=== PATIENT | male | born 1950 | race Caucasian/White ===

== ENCOUNTER → 2018-03-20 11:01 | Day surgery (SDC) | payer MEDICARE, OTHER ==
[~2018-03-20 11:01] MED LIST: Flumazenil* 0.1 MG/ML 5 ML MDV ONE; Heparin 2 UNITS/ML IVPREMIX* 1,000 ML IV ONE; Heparin 2 UNITS/ML IVPREMIX* 2,000 ML IV ONE; Heparin(*) 1000 UNIT/ML 10 ML VIAL CATH LAB IV ONE; Iodixanol* (CONTRAST) 320 MG/ML 100 ML SDV ONE; Lidocaine 1%* 5 ML VIAL ONE; Midazolam* 1 MG/ML 10 ML VIAL (10 MG) ONE; Naloxone* 0.4 MG/ML 1 ML VIAL ONE; fentaNYL* 50 MCG/ML 5 ML VIAL (250 MCG VIAL) ONE; nitroGLYCERIN DRIP* 0 MCG/0 ML BTL ONE
[2018-03-20 16:36] VITALS: BP 167/77
--- NOTE | 2018-03-20 17:39 | RAD ---
CPT II Codes: G9500 Procedure(s) performed: 1. Diagnostic arteriography of the pelvis and bilateral lower extremities. 2. Balloon angioplasty of the right common iliac artery, left internal iliac artery and left superficial femoral artery. 3. Percutaneous closure with a minx closure device to the right common femoral arteriotomy. Date of service: March 20, 2018 Indication for procedure: Right worse than left hip and buttock claudication as well as bilateral calf claudication Comparison: CTA with runoff dated January 23, 2018 Contrast: 175 mL of Visipaque 320 Fluoroscopy Time: 12.7 minutes Vessels Accessed: Percutaneous access was obtained with ultrasound guidance in the right common femoral artery in the retrograde direction towards the heart. Catheter arteriography, with the catheter tip located within the lumen of the following arteries, was performed at the right external iliac artery, aorta, left common iliac artery, left common femoral artery and left superficial femoral artery. Anesthesia: Conscious sedation with IV Fentanyl and Versed as well as local 1% lidocaine injected locally at the arteriotomy site. Conscious sedation time: Timeout: 1224 hours Case end: 1402 hours Total conscious sedation time: 1 hour and 38 minutes Additional medications: * IV heparin 5000 Units to achieve a goal ACT of 250-300. * The patient received 1 mg of p.o. Ativan prior to the onset of the procedure. PROCEDURE NOTE AND INTRAPROCEDURAL IMAGING FINDINGS: Immediately prior to the procedure the patient signed consent after thoroughly discussing all risks, benefits and alternative therapies. The patient was positioned on the fluoroscopy table in the supine position and the bilateral groins were shaved, prepped and the patient was draped in standard sterile fashion. Using fluoroscopic imaging the location of the right common femoral head was marked externally with a skin marker on the patient's groin. Utilizing sonographic guidance and palpation, the right common femoral artery was cannulated overlying the femoral head with an 18-gauge needle. An ultrasound image was saved. A 0.035" wire was slowly and smoothly advanced into the common femoral artery under fluoroscopic imaging. No buckling of the wire was visualized to indicate dissection. With the wire securing percutaneous arterial access, the needle was removed and a 5-[place] SideArm access sheath was advanced under fluoroscopic control into the right external iliac artery securing access. Through the side arm of the access sheath arteriography of the right common femoral artery demonstrated an appropriate puncture of the common femoral artery above the bifurcation and below the inferior epigastric artery. Although there is a prior CT angiogram with runoff, coarse calcification prevents more reliable determination of the degree of stenoses identified. Due to the patient's clinical presentation contrast catheter arteriography is necessary. A wire is advanced into the aorta and a 5-[place] multiside hole flush catheter was advanced to the level of the lower aorta. Power injector aortography was performed demonstrating long segment narrowing of the proximal right common iliac artery. There is apparent narrowing at the origin of the left internal iliac artery as well as narrowing of the branches of the internal iliac arteries bilaterally. The iliac arteries are otherwise adequately patent with flow seen into the proximal superficial femoral arteries bilaterally. Pressure transduction across the stenotic right common iliac artery was indicated. The following pressures were simultaneously acquired (mm Hg): SBP DBP Mean Aorta: 151 61 94 REIA: [id number] These pressures were confirmed with a "pulled back" technique comparing pressures acquired in the multiside hole catheter at the lower aorta versus the right external iliac artery. The following pressures were simultaneously acquired (mm Hg): SBP DBP Mean Aorta: 164 68 104 REIA: [id number] The Bentson wire was reinserted and replaced with a C1 C5 [place] catheter. Utilizing the Bentson wire and C1 catheter access across the iliac bifurcation was obtained and the wire was advanced into the proximal left superficial femoral artery. The 5-[place] C1 catheter was advanced to the level of the left common femoral artery. Contrast arteriography was performed demonstrating patency of the left common femoral artery and patency of the femoral profundus. There is mild stenosis at the proximal left superficial femoral artery. Arteriography was performed of the remaining left superficial femoral artery and popliteal artery demonstrating mild stenoses at the mid-level superficial femoral artery and adequate patency of the left popliteal artery. A hydrophilic stiff 260 cm length wire was advanced into the infrapopliteal arteries and over the wire a 4-[place] hydrophilic catheter was advanced until the tip was in the distal left superficial femoral artery. Contrast arteriography was performed of the remaining popliteal artery and infrapopliteal arteries. This demonstrates a high branch point of the left anterior tibial artery at the level of the knee joint. There is adequate patency of the infrapopliteal arteries proximally. Arteriography as far as the forefoot shows two-vessel in-line runoff provided by the MIKE and [employer]ATING [employer]ACHINE [employer]PER[employer] with communication of the "pedal loop". With the long hydrophilic wire still securing access, the catheter was removed and an 8 mm x 60 mm Biotronik Passeo-35 balloon was advanced to the stenotic right common iliac artery and balloon angioplasty was performed. The balloon was inflated to just below burst pressure corresponding to an approximate diameter measurement of 8.3 mm. The balloon remained inflated for minimum of 3 minutes to address spasm. Contrast arteriography through the side arm of the right common femoral artery access sheath showed no acute dissection. Injecting the short access sheath with the tip in the right external iliac artery arteriogram was performed of the right superficial femoral and popliteal arteries demonstrating mild stenoses at the mid-level right superficial femoral artery. The short access sheath was removed over the wire and a 45 cm length, 7-[place] access sheath was advanced over the wire. The tip was advanced to just above the junction of the right internal/external iliac arteries to better evaluate the recently ballooned angioplastied right common iliac artery. Contrast arteriography shows improved patency and brisk flow through the right common iliac artery. The stiffener was reinserted and the access sheath was advanced until the tip was in the left common femoral artery. Repeat arteriography from this point shows multifocal stenoses in the left superficial femoral artery. Over the wire a 5 mm x 100 mm EverCross balloon was advanced and balloon angioplasty was performed at the foci of stenoses in the left superficial femoral artery. During each inflation the balloon was inflated to just below burst pressure corresponding to a diameter measurement of 5.3 mm. The balloon remained inflated for minimum of 3 minutes to address spasm. Contrast arteriogram through the sheath with the tip in the left common femoral artery showed improved patency through the left superficial femoral artery. Over the wire the access sheath was drawn back until the tip was in the left common femoral artery. Contrast arteriogram was performed to better characterize the stenosis at the left internal iliac artery. There is coarse calcification causing a moderate degree of stenosis. Utilizing the hydrophilic wire the left internal iliac artery was selected and the 5 mm x 100 mm EverCross balloon was advanced across the stenotic ostium of the left internal iliac artery and balloon angioplasty was performed. The balloon was inflated just below burst pressure corresponding to a diameter measurement of 5.3 mm and remain inflated for minimum of 3 minutes. Contrast arteriogram after the balloon was deflated and removed demonstrated no dissection or extravasation. Over the wire the access sheath was exchanged the 7-[place], 11 cm length access sheath intended specifically for percutaneous arterial closure. Through the side arm of the access sheath arteriography of the right common femoral artery demonstrated an appropriate puncture of the common femoral artery above the bifurcation and below the inferior epigastric artery. After an appropriate resterilization of the arteriotomy and exchange for new sterile gloves, a Minx closure device was deployed at the common femoral arteriotomy and pressure held for approximately 15 minutes. There were no signs of bleeding at the percutaneous arterial access site and the site was dressed with sterile gauze and Tegaderm. The patient tolerated the procedure well and was transferred to angiography holding bay for standard post procedural observation. SUMMARY OF PROCEDURE, IMAGING FINDINGS AND INTERVENTIONS PERFORMED: 1. Diagnostic studies performed: * Arterial access was obtained at the right common femoral artery in the retrograde direction (i.e. towards the heart) with ultrasound guidance. A sonographic image was recorded. * Diagnostic catheter angiography was necessary as calcified atherosclerosis limited the diagnostic utility on the previously acquired CT angiogram. * Diagnostic catheter angiography was performed with the catheter tip in the right external iliac artery, aorta, left common iliac artery, left common femoral artery and left superficial femoral artery. * Catheter arteriography was performed of the lower abdominal aorta and entire bilateral iliac arterial circuit, the entire left lower extremity arterial circuit as far as the forefoot and the left lower extremity arterial circuit including the femoral profundus, superficial femoral artery and popliteal artery. * At the conclusion of the procedure arteriography was performed through the side arm of the access sheath to image the distal right external iliac artery, right common femoral artery and proximal superficial femoral artery and femoral profundus. 2. Interpretation of diagnostic studies performed: * Moderate stenosis at the right common iliac artery with a borderline mean arterial gradient of 6 mm Hg above and below the stenosis. * Multifocal stenoses in the bilateral superficial femoral arteries. * Mild to moderate stenosis at the origin of the left internal iliac artery. * Arteriography performed for the purpose of deploying a percutaneous arterial closure device demonstrates adequately patent right external iliac artery, common femoral artery and proximal superficial femoral artery and femoral profundus. 3. Surgical interventions performed: * Balloon angioplasty of the right common iliac artery utilizing an 8 mm x 60 mm Biotronik Passeo-35 balloon. * Balloon angioplasty of the left superficial femoral artery and left internal iliac artery with a 5 mm x 100 mm EverCross balloon. * Closure of the right common femoral artery was achieved with a Minx closure device followed by 15 minutes of gentle manual pressure. 4. Interpretation of interventions performed: * Final arteriography demonstrated improved patency and brisk flow through the aforementioned arteries status post angioplasty. Plan: 1. Aspirin 81 mg p.o. daily for life. 2. Plavix 75 mg p.o. daily x 6 months. 3. Clinical and imaging follow-up according to standard Interventional Radiology protocol.
== END | disposition home or self-care (01) ==
LOC: CHICATH 11:01
PROVIDERS: ATTEND Radiology Diagnostic Radiology
DX: I70.223 Atherosclerosis of native arteries of extremities with rest pain, bilateral legs (principal); I25.2 Old myocardial infarction; I25.10 Atherosclerotic heart disease of native coronary artery without angina pectoris; E66.9 Obesity, unspecified; E11.9 Type 2 diabetes mellitus without complications; Z79.4 Long term (current) use of insulin; K21.9 Gastro-esophageal reflux disease without esophagitis; Z72.0 Tobacco use
CPT/HCPCS: 75736; 76937; 85347; 99156; 99157; C1725; C1760; C1769; C1887; C1894; J1644; J2250; J2310; J3010

== ENCOUNTER → 2019-05-02 09:03 | Day surgery (SDC) | payer MEDICARE, OTHER ==
[~2019-05-02 09:03] MED LIST changes: +Iodixanol 320 (CONTRAST) 100 ML SDV ONE; -Iodixanol* (CONTRAST) 320 MG/ML 100 ML SDV ONE; +Lidocaine 1% INJ* 10 MG/ML 30 ML SDV ONE; -Lidocaine 1%* 5 ML VIAL ONE; -Midazolam* 1 MG/ML 10 ML VIAL (10 MG) ONE; +Midazolam* 1 MG/ML 5 ML VIAL (5 MG) ONE; +fentaNYL* 50 MCG/ML 2 ML VIAL (100 MCG VIAL) ONE; -fentaNYL* 50 MCG/ML 5 ML VIAL (250 MCG VIAL) ONE; -nitroGLYCERIN DRIP* 0 MCG/0 ML BTL ONE; +nitroGLYCERIN DRIP* 25,000 MCG/250 ML BTL ONE
[2019-05-02 10:58] LABS: Activated Partial Thrombo Time 33.1 seconds (26.0-38.0); INR 0.97 (0.82-1.09)
[2019-05-02 19:03] VITALS: BP 150/58
== END | disposition home or self-care (01) ==
LOC: CHICATH 09:03
PROVIDERS: ATTEND Radiology Diagnostic Radiology
DX: I70.221 Atherosclerosis of native arteries of extremities with rest pain, right leg (principal); E11.9 Type 2 diabetes mellitus without complications; Z96.41 Presence of insulin pump (external) (internal); Z79.4 Long term (current) use of insulin; Z79.84 Long term (current) use of oral hypoglycemic drugs; I25.10 Atherosclerotic heart disease of native coronary artery without angina pectoris; Z95.5 Presence of coronary angioplasty implant and graft; Z79.01 Long term (current) use of anticoagulants; F17.210 Nicotine dependence, cigarettes, uncomplicated; E66.9 Obesity, unspecified; K58.9 Irritable bowel syndrome, unspecified; K21.0 Gastro-esophageal reflux disease with esophagitis; K22.70 Barrett's esophagus without dysplasia
CPT/HCPCS: 36415; 37252; 75716; 75736; 76937; 85347; 85610; 85730; 99156; 99157; C1724; C1753; C1760; C1769; C1887; C1894; C2623; J1644; J2250; J2310; J3010